=== PATIENT | female | born 1970 | race African-American/Black ===

== ENCOUNTER → 2018-02-13 | Day surgery (SDC) | payer OTHER ==
--- NOTE | 2018-02-12 14:37 | Diagnostic Imaging Report ---
EXAMINATION: CHEST 2 VIEWS INDICATION: Right fifth metacarpal injury. \S\PRE ADMIT COMPARISON: None FINDINGS: PA and lateral views TUBES and LINES: None. LUNGS: Lungs are well inflated. Bilateral peribronchial cuffing. There is no evidence of pneumonia or pulmonary edema. PLEURA: No pleural effusion or pneumothorax. HEART AND MEDIASTINUM: The cardiomediastinal silhouette is unremarkable. BONES AND SOFT TISSUES: No acute osseous lesion. Soft tissues are unremarkable. UPPER ABDOMEN: No free air under the diaphragm. IMPRESSION: Bilateral peribronchial cuffing, which could represent viral etiology or reactive airway disease. Signed by: Dr. Luis Macias M.D. on 02/12/2018 2:34 PM
[~2018-02-13] MED LIST: ASPIRIN81 MG; BACITRACIN 50,000 UNIT VIAL ONE; BUPIVACAINE HCL 0.5% INJ 30 ML VIAL INJ ONE; CEFAZOLIN SOD 2 GM/D5W 50ML 50 ML IV ONE; DEXAMETHASONE SOD PHOS INJ 4 MG/ML VIAL ONE; FENTANYL CITRATE/PF 100MCG/2 ML INJ ONE; HYDROCHLOROTHIA25 MG; KETOROLAC TROMETHAMINE 30 MG/ML VIAL ONE; LIDOCAINE HCL 2% LOCAL INJ 5 ML SDV VIAL INJ ONE; MIDAZOLAM HCL 2 MG/2 ML VIAL ONE; MORPHINE SULFATE 2 MG/ML SYR ONE; ONDANSETRON HCL INJ 2 MG/ML VIAL ONE; PROPOFOL IV EMULSION 10 MG/ML 20 ML VIAL ONE; SEVOFLURANE INHAL SOLN 250 ML PEN BTL ONE; ULTRACET TABLE1 EACH
[2018-02-13 13:20] VITALS: BP 155/71
--- NOTE | 2018-02-14 14:31 | Operative Report ---
DATE OF PROCEDURE: February 13, 2018 PREOPERATIVE DIAGNOSIS: Right small finger metacarpal fracture. POSTOPERATIVE DIAGNOSIS: Right small finger metacarpal fracture. PROCEDURE PERFORMED: Patient underwent a closed reduction and percutaneous pinning of the right small finger metacarpal fracture. MEDICAL ASSISTANT SECRETARY: None. ANESTHESIA: General intubation anesthesia. IV FLUIDS: Per the anesthesia record. OPERATIVE PROCEDURE IN DETAIL: Ms. Leyva was taken to the operating room and placed in the supine position on the operating table. Following induction of general anesthesia as well as endotracheal intubation, the patient's right upper extremity was examined under anesthesia. She was found to have bruising and swelling involving the ulnar border of her hand. Fluoroscopic evaluation of the hand demonstrated a small finger metacarpal fracture. Upon close examination with fluoroscopy, the patient was found a head-splitting injury. The patient's finger was manipulated under anesthesia, and this resulted in acceptable realignment of the patient's injury. Two 0.062 K-wires were inserted from distal to proximal transfixing the patient's fracture site in its reduced position. The position of those K-wires as well as reduction of fracture was assessed fluoroscopically and found to be appropriate. The pins were then dressed sterilely and a 2-finger ulna gutter splint was applied to the upper extremity. The patient was then awakened and taken to the postanesthesia care unit in stable condition. Job#: [id number]
== END | disposition home or self-care (01) ==
LOC: OR 08:29
PROVIDERS: ATTEND Specialist
DX: S62.336A Displaced fracture of neck of fifth metacarpal bone, right hand, initial encounter for closed fracture (principal); I10 Essential (primary) hypertension; F17.210 Nicotine dependence, cigarettes, uncomplicated; W22.01XA Walked into wall, initial encounter; Z01.810 Encounter for preprocedural cardiovascular examination; Z01.818 Encounter for other preprocedural examination; Z79.82 Long term (current) use of aspirin; Z68.35 Body mass index [BMI] 35.0-35.9, adult
CPT/HCPCS: 26608; 71046; 81025; 93005; J1100; J1885; J2001; J2250; J2270; J2405; 76000